=== PATIENT | male | born 1995 ===

== ENCOUNTER 2017-03-09 16:48 | Emergency (ER) | payer SELFPAY ==
[2017-03-09 17:00] VITALS: BP 122/70; PULSE 84; RESP 20; O2SAT 99
== END 2017-03-09 16:55 | disposition left against medical advice (07) ==
LOC: SED 16:48
DX: M79.672 Pain in left foot (principal); Z53.21 Procedure and treatment not carried out due to patient leaving prior to being seen by health care provider